=== PATIENT | male | born 1995 | race Two or more races ===

== ENCOUNTER 2017-08-25 17:52 | Emergency (ER) | payer SELFPAY ==
[2017-08-25] MEDS ORDERED: Diphtheria,Pertussis(Acell),Tetanus Vaccine 0.5 ML SDV IM ONE (18:06)
[2017-08-25] MEDS ORDERED: Bacitracin Oint 15 GM Tube TOP ONE (18:06)
[2017-08-25] MEDS ORDERED: traMADol 50 MG Tab PO ONE (18:51)
[2017-08-25] MEDS ORDERED: Silver Sulfadiazine 1% Crm 50 GM Tube TOP ONE (18:51)
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
== END 2017-08-25 19:02 | disposition home or self-care (01) ==
LOC: FB.ED 17:52
DX: S09.90XA Unspecified injury of head, initial encounter (principal); S00.03XA Contusion of scalp, initial encounter; T22.00XA Burn of unspecified degree of shoulder and upper limb, except wrist and hand, unspecified site, initial encounter; T24.002A Burn of unspecified degree of unspecified site of left lower limb, except ankle and foot, initial encounter; T24.001A Burn of unspecified degree of unspecified site of right lower limb, except ankle and foot, initial encounter; T21.04XA Burn of unspecified degree of lower back, initial encounter; T20.00XA Burn of unspecified degree of head, face, and neck, unspecified site, initial encounter; Z23 Encounter for immunization; V89.2XXA Person injured in unspecified motor-vehicle accident, traffic, initial encounter; X58.XXXA Exposure to other specified factors, initial encounter
CPT/HCPCS: 16000; 70450; 90471; 90715; 99284; A9270; 90472; 99283

== ENCOUNTER 2022-11-07 05:53 | Emergency (ER) | payer SELFPAY ==
[2022-11-07] MEDS ORDERED: Thiamine 200 MG/2 ML MDV IVPUSH ONE (06:10)
[2022-11-07] MEDS ORDERED: Sodium Chloride 0.9% 1,000 ML IV SCH (06:15)
[2022-11-07 06:53] LABS: MEAN CORPUSCULAR HEMOGLOBIN 29.4 pg (27.0-33.3); MEAN CORPUSCULAR HGB CONC 33.2 g/dL (28.7-35.3); MEAN CORPUSCULAR VOLUME 88.6 fL (80.8-98.7); RED BLOOD CELL COUNT 5.09 x10(6)uL (3.90-5.90); WHITE BLOOD CELL COUNT,WBC 8.5 x10-3/uL (3.2-10.1)
[2022-11-07 06:54] LABS: EOSINOPHILS ABSOLUTE AUTO 0.1 x10-3/uL (0.0-0.6); EOSINOPHILS PERCENT AUTO 0.8 % (0.1-6.8); MEAN PLATELET VOLUME 8.3 fL (6.7-11.0); MONOCYTES ABSOLUTE AUTO 0.4 x10-3/uL (0.0-1.2); NEUTROPHILS ABSOLUTE AUTO 6.1 x10-3/uL (1.7-6.9); NEUTROPHILS PERCENT AUTO 71.2 % (40.3-71.8); PLATELET COUNT,PLT 122 x10(3)uL (117-477)
[2022-11-07 06:56] LABS: BLOOD UREA NITROGEN,BUN 13 mg/dL (7-18); BUN/CREATININE RATIO 21.7 (9-20); CARBON DIOXIDE,CO2 25 mmol/L (21-32); CHLORIDE,CL 105 mmol/L (100-110); CREATININE 0.6 mg/dL (0.70-1.30); EST CRCL DRUG DOSING (CG) 160.87 mL/min; ESTIMATED GFR 136 mL/min (>60); GLUCOSE RANDOM 131 mg/dL (80-116); SODIUM,NA 140 mmol/L (135-145)
[2022-11-07 07:00] LABS: ETHANOL BLOOD MEDICAL 0.25 % (<0.03)
== END 2022-11-07 10:20 | disposition home or self-care (01) ==
LOC: FB.ED 05:53
DX: F10.929 Alcohol use, unspecified with intoxication, unspecified (principal); E86.0 Dehydration; F17.210 Nicotine dependence, cigarettes, uncomplicated; Y90.8 Blood alcohol level of 240 mg/100 ml or more
CPT/HCPCS: 36415; 80048; 80307; 83690; 85025; 93005; 96361; 96374; 99284; J3411; J7030

== ENCOUNTER 2022-12-29 19:00 | Emergency (ER) | payer SELFPAY ==
[2022-12-29] MEDS ORDERED: traMADol 50 MG Tab PO ONE (19:01)
[2022-12-29] MEDS ORDERED: HYDROmorphone 2 MG/ML SDV IVPUSH ONE (19:13)
[2022-12-29] MEDS ORDERED: Ondansetron 4 MG/2 ML SDV IVPUSH ONE (19:13)
[2022-12-29 19:27] LABS: BASOPHILS PERCENT AUTO 0.4 % (0.3-3.8); EOSINOPHILS ABSOLUTE AUTO 0.5 x10-3/uL (0.0-0.6); EOSINOPHILS PERCENT AUTO 5.2 % (0.1-6.8); HEMOGLOBIN 15.2 g/dL (12.9-17.7); LYMPHOCYTES ABSOLUTE AUTO 2.9 x10-3/uL (0.5-4.5); LYMPHOCYTES PERCENT AUTO 31.7 % (15.8-45.3); MEAN CORPUSCULAR HEMOGLOBIN 29.5 pg (27.0-33.3); MEAN CORPUSCULAR HGB CONC 33.7 g/dL (28.7-35.3); MEAN CORPUSCULAR VOLUME 87.4 fL (80.8-98.7); MEAN PLATELET VOLUME 8.3 fL (6.7-11.0); MONOCYTES ABSOLUTE AUTO 0.8 x10-3/uL (0.0-1.2); MONOCYTES PERCENT AUTO 8.8 % (5.5-15.2); NEUTROPHILS PERCENT AUTO 53.9 % (40.3-71.8); PLATELET COUNT,PLT 358 x10(3)uL (117-477); RED BLOOD CELL COUNT 5.15 x10(6)uL (3.90-5.90); RED CELL DISTRIBUTION WIDTH 13.2 % (12.4-15.0); WHITE BLOOD CELL COUNT,WBC 9.2 x10-3/uL (3.2-10.1)
[2022-12-29 19:31] LABS: BLOOD UREA NITROGEN,BUN 16 mg/dL (7-18); CALCIUM 8.9 mg/dL (8.6-10.2); CARBON DIOXIDE,CO2 33 mmol/L (21-32); CHLORIDE,CL 103 mmol/L (100-110); ESTIMATED GFR 105 mL/min (>60); GLUCOSE RANDOM 104 mg/dL (80-116); SODIUM,NA 143 mmol/L (135-145)
[2022-12-29] MEDS ORDERED: hydrOXYzine HCl 50 MG/ML SDV IM ONE (19:41)
[2022-12-29] MEDS ORDERED: fentaNYL 100 MCG/2 ML SDV IVPUSH ONE (19:41)
[2022-12-29 19:42] LABS: ALANINE AMINOTRANSFERASE,ALT 39 U/L (12-36); ALBUMIN 3.7 g/dL (3.5-5.2); ALKALINE PHOSPHATASE 126 IU/L (56-112); ASPARTATE AMNIOTRANSFERASE,AST 18 IU/L (5-25); BILIRUBIN TOTAL 0.3 mg/dL (0.1-1.3); PROTEIN TOTAL,TP 7.5 g/dL (6.0-8.0)
== END 2022-12-29 20:31 | disposition home or self-care (01) ==
LOC: FB.ED 19:00
DX: K80.20 Calculus of gallbladder without cholecystitis without obstruction (principal)
CPT/HCPCS: 71046; 80053; 83690; 85025; 96372; 96374; 96375; 99283; 99284-25; A9270-GY; J1170; J2405; J3010; J3410